=== PATIENT | female | born 1995 | race Caucasian/White ===

== ENCOUNTER 2021-08-29 18:07 | Emergency (ER) | payer OTHER ==
[~2021-08-29] VITALS: Ht 157.5 cm; Wt 91.0 kg
[2021-08-29 18:14] VITALS: BP 138/88
== END 2021-08-29 23:07 | disposition left against medical advice (07) ==
LOC: ER 18:07
DX: M25.562 Pain in left knee (principal); Z53.21 Procedure and treatment not carried out due to patient leaving prior to being seen by health care provider
CPT/HCPCS: 99281